=== PATIENT | male | born 1985 | race African-American/Black ===

== ENCOUNTER 2019-08-03 04:24 | Inpatient (IN) | payer OTHER ==
[2019-08-03] MEDS ORDERED: SODIUM CHLORIDE 0.9% 1,000 ML IV STA (04:48)
[2019-08-03] MEDS ORDERED: HYDROmorphone 1 MG/ML 1 ML SYRINGE IVP STA ×2 (04:48→05:40)
--- NOTE | 2019-08-03 04:48 | ED ---
Head Injury HPI - General Chief complaint: Trauma Stated complaint: Mandible fracture Time Seen by Provider: 08/03/19 04:37 Source: patient, EMS Mode of arrival: EMS Limitations: no limitations - History of Present Illness Initial comments: This patient is 34-year-old man who presents to be evaluated for mandible injury. He arrives here as a transfer from [facility]. Patient states that he had a slip and fall injury on the stairs tonight. He states he had gone down approximately 6 stairs landing on his mandible. He went to the other facility where he had imaging that reportedly showed bilateral mandible fractures. There were overlying lacerations. He did receive antibiotic there and was transferred here for OMFS consultation. Patient denies other injuries. No loss consciousness. No headache or neck pain. No chest, back, abdomen or extremity injuries. MD Complaint: fall -: hour(s) Mechanism of Injury: mechanical fall Location: mandible Loss of Consciousness: no Previous Trauma to this Area: No Place: home Radiation: none Severity: severe Quality: sharp Consistency: constant Provoking factors: none known Other Injuries: laceration Associated Symptoms: denies other symptoms - Related Data Previous Rx's Medication Instructions Recorded Naproxen Sodium [Anaprox Ds] 550 mg PO Q12HR #15 tab 11/28/13 Allergies/Adverse reactions: Allergies Allergy/AdvReac Type Severity Reaction Status Date / Time No Known Allergies Allergy Verified 11/28/13 16:34 Review of Systems ROS Statement: Those systems with pertinent positive or pertinent negative responses have been documented in the HPI. ROS Other: All systems not noted in ROS Statement are negative. Constitutional: Denies: fever ENT: Denies: ear pain, throat pain, epistaxis Respiratory: Denies: cough, dyspnea Cardiovascular: Denies: chest pain Gastrointestinal: Denies: abdominal pain, vomiting Musculoskeletal: Denies: back pain Neurological: Denies: headache, weakness, numbness Hematological/Lymphatic: Denies: easy bleeding Past Medical History Past Medical History: No Reported History History of Any Multi-Drug Resistant Organisms: None Reported Past Surgical History: No Surgical Hx Reported Past Psychological History: No Psychological Hx Reported Smoking Status: Current every day smoker Past Alcohol Use History: Occasional Past Drug Use History: None Reported General Exam Limitations: no limitations General appearance: alert, in no apparent distress Head exam: Present: atraumatic, normocephalic Eye exam: Present: normal appearance, PERRL, EOMI. Absent: scleral icterus, conjunctival injection ENT exam: Present: other (Patient has swelling and tenderness along the bilateral mandible.) Neck exam: Present: normal inspection, full ROM. Absent: tenderness, meningismus Respiratory exam: Present: normal lung sounds bilaterally. Absent: respiratory distress, wheezes, rales, rhonchi, stridor Cardiovascular Exam: Present: regular rate, normal rhythm, normal heart sounds. Absent: systolic murmur, diastolic murmur, rubs, gallop GI/Abdominal exam: Present: soft. Absent: distended, tenderness, guarding, rebound Extremities exam: Present: normal inspection, normal capillary refill Back exam: Present: normal inspection. Absent: vertebral tenderness Neurological exam: Present: alert, oriented X3 Skin exam: Present: warm, dry, intact, normal color. Absent: rash Course Vital Signs 08/03/19 08/03/19 04:25 05:48 Temperature 98 F Pulse Rate 94 87 Respiratory 18 18 Rate Blood Pressure 142/84 129/79 O2 Sat by Pulse 98 98 Oximetry Disposition Clinical Impression: Fracture of mandible, Intractable pain Disposition: ADMITTED IP TO THIS HOSP Condition: Fair Is patient prescribed a controlled substance at d/c from ED?: No Referrals: Humphrey Fitzgerald MD [Primary Care Provider] - 1-2 days
[2019-08-03] MEDS ORDERED: ONDANSETRON 4 MG/2 ML VIAL IVP PRN (07:19)
[2019-08-03] MEDS ORDERED: NALOXONE 0.4 MG/ML 1 ML VIAL IV PRN (07:19)
[2019-08-03] MEDS: FAMOTIDINE 20 MG/2 ML VIAL IV SCH ×2 (08:15→20:57)
[2019-08-03] MEDS: SODIUM CHLORIDE 0.9% 1,000 ML IV SCH ×3 (08:16→21:51)
[2019-08-03] MEDS: HYDROmorphone 1 MG/ML 1 ML SYRINGE IVP PRN ×3 (09:15→20:57)
[2019-08-03] MEDS: AMPICILLIN-SULBACTAM 3 GM in SODIUM CHLORIDE 0.9% 100 ML IVPB SCH ×3 (10:24→21:50)
--- NOTE | 2019-08-03 10:52 | P.HPIHPCON ---
History of Present Illness H&P Date: 08/03/19 Chief Complaint: My face hurts This is a 34-year-old male lying in bed comfortably. Reported falling down the stairs last night did report drinking heavily at the time. Port is went down proximally 6 stairs and landed on his mandible. Had been seen at [facility] and transferred to [facility]. Denies any other injuries denies loss of consciousness denies headache or neck pain. Consent for Procedure: I have explained the operation/procedure to the patient, including the risks, benefits, side effects, alternative therapies (including not receiving the proposed treatment or service), the likelihood of the patient achieving his/her goals, and potential recuperation problems for the procedure/sedation/analgesia, as well as any blood products, if indicated. I also explained to the patient the risks, benefits and side effects of the alternatives, as well as the risks related to not receiving the proposed procedure, care, treatment, or services. A detailed discussion with the patient about the procedure including the likelihood for closed fixation of his teeth for up to or greater than 6 weeks. This would require liquid diet for this entire time. It also would require small wire cutters be carried on his person the case and airway emergency. Also would require that he only cuts the wires in a true emergency or surgery would have to be repeated. - Review of Systems Comment: Patient resting in bed comfortably as per HPI. Denies any pain other than his jaw bilaterally. Patient denies any cough shortness of breath. Also denies any contact with posi tive patient reports active social distancing Past Medical History Past Medical History: No Reported History History of Any Multi-Drug Resistant Organisms: None Reported Past Surgical History: No Surgical Hx Reported Past Psychological History: No Psychological Hx Reported Smoking Status: Current every day smoker Past Alcohol Use History: Occasional Past Drug Use History: None Reported Medications and Allergies Home Medications Medication Instructions Recorded Confirmed Type No Known Home Medications 08/03/19 08/03/19 History Allergies Allergy/AdvReac Type Severity Reaction Status Date / Time shellfish derived [Shellfish] Allergy Unknown Verified 08/03/19 09:10 Surgical - Exam Vital Signs Temp Pulse Resp BP Pulse Ox 98 F 94 18 142/84 98 08/03/19 04:25 08/03/19 04:25 08/03/19 04:25 08/03/19 04:25 08/03/19 04:25 Patient able open his mouth approximately 30 mm. He reports this is improved after his pain medication.he has moderate swelling of the right mandible and the parasymphysis area and mild swelling of the left mandible towards the angle. This is nonfluctuant. Does report some skin numbness on the lip. He feels this is incomplete and not as numb as when he goes to the dentist. Mucous membranes are moist and intact and he has slight bleeding around tooth #18 and tooth #28, 29 Lungs are clear to auscultation bilaterally heart has regular rate and rhythm no murmur no gallop. Bowel sounds are present and active. Range of motion of all 4 extremities. - General well developed, no distress - Eyes PERRL - ENT no congestion - Neck trachea midline - Respiratory normal expansion, normal respiratory effort, clear to auscultation - Cardiovascular Rhythm: regular - Abdomen Abdomen: soft, non tender, bowel sounds Results Sodium 140. Potassium 3.6. Chloride 101. CO2 29.8. BUS and 12.0. Creatinine 1.1. Glucose 103. Calcium 9.0. AST 37. ALT 36. EtOH level 173.8 Pro time 9.5. INR 0.93. WBC 9.1. RBC 5.1. Hemoglobin 15.1. Hematocrit 44.8. - Imaging Comments: CT maxillofacial bones without contrast result 08/03/2019 3:05 AM. Impression there is bilateral fractures 90 mandibles without significant displacement soft tissue air maxilla appears intact. Read by Frank Frederick M.D. Review of CAT scan from the disc showed possible involvement of tooth #18. Extraction in the future may be required but this would increase the displ acement of the fracture and extracted at this time Assessment and Plan Assessment: Mandibular fracture right mandibular body distal to premolar tooth. Nondis placed Mandibular fracture left mandibular body involving tooth #18 minimally displaced Plan: Decision made with patient to perform closed reduction maxillomandibular fixat ion possibility open reduction depending on how the fractures were performing in the operating room. Discussion of consent was had with the patient including wired shut for 6 weeks. These fractures would not be amenable to soft diet alone. Time with Patient: Greater than 30
[2019-08-03] MEDS ORDERED: HYDROmorphone 0.5 MG/0.5 ML SYRINGE IVP PRN (11:17)
[2019-08-03] MEDS ORDERED: IV FLUID CONTINUATION 200 ML IV ONE (11:36)
[2019-08-03] MEDS ORDERED: fentaNYL (PF) 50 MCG/ML 2 ML AMP ONE (11:36)
[2019-08-03] MEDS ORDERED: SUCCINYLCHOLINE CHLORIDE 100 MG/5 ML SYR IV ONE (11:36)
[2019-08-03] MEDS ORDERED: PROPOFOL 10 MG/ML 20 ML VIAL IV ONE (11:36)
[2019-08-03] MEDS ORDERED: LIDOCAINE 1% INJ 10MG/ML (20 ML MDV) ONE (11:36)
[2019-08-03] MEDS ORDERED: GLYCOPYRROLATE 0.2 MG/ML 2 ML VIAL ONE (11:36)
[2019-08-03] MEDS ORDERED: OXYMETAZOLINE 0.05% NASL SPRAY 1 SPRAY BOTTLE ONE (11:36)
[2019-08-03] MEDS ORDERED: MIDAZOLAM 2 MG/2 ML VIAL ONE (11:36)
[2019-08-03] MEDS ORDERED: NALOXONE 0.4 MG/ML 1 ML VIAL ONE (11:36)
[2019-08-03] MEDS ORDERED: LIDOCAINE 2%-EPI 1:100,000 20 ML VIAL SUBMUCOSAL ONE ×2 (11:53)
[2019-08-03] MEDS ORDERED: LACTATED RINGERS 1,000 ML IV ONE ×2 (11:56→13:31)
--- NOTE | 2019-08-03 13:15 | P.OP ---
Date of Procedure: 08/03/19 Preoperative Diagnosis: Bilateral mandible fracture, right body fracture left angle fracture Postoperative Diagnosis: Same Procedure(s) Performed: Closed reduction maxillomandibular fixation of right body fracture and left angle fracture Anesthesia: FLORENCIA Surgeon: Adilson Easley Estimated Blood Loss (ml): 5 IV fluids (ml): 1,000 Urine output (ml): 0 Pathology: none sent Condition: stable Disposition: no change Indications for Procedure: Patient admitted for bilateral mandible fractures after falling down stairs last night. Blood alcohol level 178. Patient has intraoral bleeding and unstable bite. Pain better controlled with IV pain medication but upon initial reports patient had significant pain. Patient had: Negative test for lam virus. Reported good social distancing at the side cough or chest pain. Consent reviewed with the patient including but not limited to bleeding pain infection swelling. Patient reported some numbness of his left on the left side and educated this may be a permanent situation. Also plan to wire together for proximally 6 weeks and may require further surgery. Patient asked appropriate questions and understood the consent Description of Procedure: Patient brought down from the floor brought to operating room 7 where he was intubated nasally per the anesthesia record without difficulty. Patient was then prepped with the peroxide due to questionable ALLERGY to shellfish. Bite block placed proximally 10 mL of 2% lidocaine administered throat pack placed fractures were palpated and seen to be in stable condition no obvious intraoral wounds but some oral bleeding was noted. Less than 5 mL blood loss for the entire case. Arch bars were fitted and secured to the anterior teeth premolar to premolar with combination 2425-gauge stainless steel wire. All wires were blunted and twisted down and the throat pack bite block were removed. His occlusion was able to come into the correct position and secured in apposition with 425-gauge stainless steel wires. Patient was then waiting extubation and plans to be transferred to the floor where and resuming his previous orders
[2019-08-03] MEDS: LACTATED RINGERS 1,000 ML IV SCH (14:42)
[2019-08-03] MEDS: CHLORHEXIDINE GLUCONATE 15 ML CUP MUCOUS MEM SCH ×2 (14:43→21:51)
[2019-08-04] MEDS: AMPICILLIN-SULBACTAM 3 GM in SODIUM CHLORIDE 0.9% 100 ML IVPB SCH ×2 (02:25→09:28)
[2019-08-04] MEDS: HYDROmorphone 1 MG/ML 1 ML SYRINGE IVP PRN ×3 (02:29→09:35)
[2019-08-04 05:11] VITALS: BP 139/94; PULSE 78; RESP 12; TEMP 97.8
[2019-08-04] MEDS: SODIUM CHLORIDE 0.9% 1,000 ML IV SCH ×2 (07:42→09:30)
[2019-08-04] MEDS: FAMOTIDINE 20 MG/2 ML VIAL IV SCH (09:27)
[2019-08-04] MEDS: LACTATED RINGERS 1,000 ML IV SCH (09:30)
[2019-08-04] MEDS: CHLORHEXIDINE GLUCONATE 15 ML CUP MUCOUS MEM SCH (09:36)
--- NOTE | 2019-08-04 10:05 | P.PN ---
Subjective Progress Note Date: 08/04/19 Principal diagnosis: Bilateral Mandible fracture, Right body and Left Angle admited through ER yesterday. Reported falling down the stairs yesterday night did report drinking heavily at the time. Had been seen at [facility] and transferred to [facility]. This is a 34-year-old male lying in bed comfortably. Today reports his jaw feels better now that it's wired shut. Does report the teeth feel tight and somewhat uncomfortable but this I reassured him is normal. Denies any other aches or pains. Reports misses his own bed and wants to go home. Objective - Vital Signs Vital signs: Vital Signs Temp 97.8 F 08/04/19 04:52 Pulse 78 08/04/19 04:52 Resp 12 08/04/19 04:52 BP 139/94 08/04/19 04:52 Pulse Ox 99 08/04/19 04:52 Intake & Output 08/03/19 08/04/19 08/04/19 18:59 06:59 18:59 Intake Total 1350 360 Output Total 4 Balance 1346 360 Weight 69.4 kg Intake: IV 1350 Intake, IV Titration 360 Amount Ampicillin-Sulbactam 3 gm 100 In Sodium Chloride 0.9% 100 ml @ 200 mls/hr IVPB Q6H CYNTHIA Rx#:[id number] Sodium Chloride 0.9% 1, 260 000 ml @ 130 mls/hr IV . Q7H42M CYNTHIA Rx#:[id number] Output: Estimated Blood Loss 4 Other: Voiding Method Toilet # Voids 3 - Exam Jaw swelling appears to be reduced in size on the right no change of the left. Alert and oriented 3. Intermaxillary fixation is stable with good hygiene intraorally slight mandibular swelling noted on the right and the vestibule wit hin normal limits. - Constitutional General appearance: Present: cooperative, no acute distress - EENT Eyes: Present: EOMI - Neck Neck: Present: normal ROM - Respiratory Respiratory: bilateral: CTA - Cardiovascular Rhythm: regular Heart sounds: normal: S1, S2 - Gastrointestinal General gastrointestinal: Present: normal bowel sounds - Neurologic Neurologic: Present: CNII-XII intact Assessment and Plan Assessment: Mandibular fracture right mandibular body distal to premolar tooth. Nondisplaced Mandibular fracture left mandibular body involving tooth #18 minimally displaced Normal postoperative course with good maxillomandibular fixation Plan: Due to normal postoperative course and stable maxillomandibular fixation and patient desire to go home decision to discharge today. Prescriptions on chart included Peridex oral rinse dispense 4 and 75 mL 10 mL's by mouth rinse and spit 3 times a day. Amoxicillin suspension 250 mg per 5 mL's dispense 10 day supply 10 mL's by mouth 3 times a day. Motrin 100 mg per 5 mL's liquid dispense 400 mL's 20 mL's by mouth every 4 hours when necessary pain. Lortab elixir dispense 250 mL stem L's by mouth every 4 hours when necessary pain. No refill. Discussed follow-up with patient he knows to look for increased swelling and increased pain and call the office immediately I recommended to follow up in 2 weeks to see me in the office. Discussed the importance of carrying wire cutters on his person at all times. These to be used only emergency. Patient states he has a great set of small wire cutters at his house that he would carry with him and all times. Time with Patient: Greater than 30 (Postoperative instructions reviewed personally with patient.)
== END 2019-08-04 12:08 | disposition home or self-care (01) | DRG 159 ==
LOC: EC 04:24 → 5NMEDONC 07:19 → OBSVTOIN 13:06
PROVIDERS: ADMIT Dentist Oral and Maxillofacial Surgery; ATTEND Dentist Oral and Maxillofacial Surgery
PROC: 0NST34Z Reposition Right Mandible with Internal Fixation Device, Percutaneous Approach (ICD-10-PCS; principal; 2019-08-03 11:13)
PROC: 0NSV34Z Reposition Left Mandible with Internal Fixation Device, Percutaneous Approach (ICD-10-PCS; principal; 2019-08-03 11:13)
DX: S02.601A Fracture of unspecified part of body of right mandible, initial encounter for closed fracture (principal); S02.652A Fracture of angle of left mandible, initial encounter for closed fracture; F17.200 Nicotine dependence, unspecified, uncomplicated; Z11.59 Encounter for screening for other viral diseases; W10.8XXA Fall (on) (from) other stairs and steps, initial encounter; Y92.9 Unspecified place or not applicable
CPT/HCPCS: 87635; 96361; 96374; 96375; 96376; 99284